=== PATIENT | male | born 1945 | race Caucasian/White ===

== ENCOUNTER 2016-11-14 01:35 | Emergency (ER) | payer OTHER, MEDICARE ==
[2016-11-14] MEDS ORDERED: Haloperidol Lactate 5 MG/ML SDV IM ONE (01:54)
[2016-11-14] MEDS ORDERED: Diphtheria,Pertussis(Acell),Tetanus Vaccine 0.5 ML Syringe IM ONE (01:55)
[2016-11-14] MEDS ORDERED: cefTRIAXone 1 GM in Premix Bag 1 BAG IV ONE (01:56)
[2016-11-14] MEDS ORDERED: Sodium Chloride 0.9% 1,000 ML IV SCH (02:00)
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
[2016-11-14 02:32] LABS: CHLORIDE,CL 108 mmol/L (98-110); SODIUM,NA 140 mmol/L (136-146)
[2016-11-14 02:52] LABS: ACETAMINOPHEN < 3.0 ug/mL
[2016-11-14 05:07] VITALS: BP 162/91
--- NOTE | 2016-11-14 18:18 | CR ---
EXAM DATE: 11/14/16 PATIENT'S AGE: 71 Patient: LADY NEWMAN Facility: [place], [place] Site . Site : 1945 Study: XRay Chest [id number]/3/2017 2:31:02 AM Ordering Physician: Doctor Riggins Final Report: Indication: Laceration to left neck, patient suicidal Technique: Chest 1 view. Comparison: None Findings/impression: : Normal cardiomediastinal silhouette. Blunting of the left costophrenic angle on the basis of a small amount of pleural fluid or pleural thickening. Minimal linear atelectasis or scarring at both lung bases. There is patchy atelectasis or infiltrate at the right midlung zone. No pneumothorax. No acute osseous abnormality. Dictated by Venessa Eldridge MD @ Nov 14 2016 2:52AM (Electronic Signature) Report Signed by Proxy. JAYLYN
--- NOTE | 2016-11-14 18:19 | CR ---
EXAM DATE: 11/14/16 PATIENT'S AGE: 71 Patient: LADY NEWMAN Facility: [place], [place] Site . Site : 1945 Study: XRay Chest [id number]/3/2017 2:59:18 AM Ordering Physician: Danna Winkler Final Report: Indication: Intubation Technique: Chest 1 view Comparison: October 15, 2016 at 2:17 a.m. Findings/Impression: Endotracheal tube tip terminates 4.1 cm above the level of the antonio. Remainder of the exam is stable compared to the earlier study. Dictated by Venessa Eldridge MD @ Nov 14 2016 3:28AM (Electronic Signature) Report Signed by Proxy. JAYLYN
== END 2016-11-14 03:25 | disposition other institution (70) ==
LOC: MW.ED 01:35
DX: S11.91XA Laceration without foreign body of unspecified part of neck, initial encounter (principal); X78.1XXA Intentional self-harm by knife, initial encounter
CPT/HCPCS: 31500; 71010; 80053; 80305; 81001; 84443; 84484; 85025; 85610; 90471; 90715; 93005; 96361; 96365; 96372; 99285; G0480; J0696; J1630; J7040; 99284